=== PATIENT | female | born 1990 | race Caucasian/White ===

== ENCOUNTER 2019-01-06 01:21 | Emergency (ER) | payer BC ==
[2019-01-06 01:29] VITALS: BP 137/86; PULSE 77; TEMP 98.3; BMI 22.8
[2019-01-06] MEDS ORDERED: CYCLOBENZAPRINE HCL 10 MG TABLET (FP) PO ONE (02:07)
--- NOTE | 2019-01-06 02:10 | PDOC ---
History of Present Illness - General Chief Complaint: Muscle Cramping Stated Complaint: MUSCLE SPASMS Time Seen by Provider: 01/06/19 01:45 History Source: Patient Exam Limitations: No Limitations - History of Present Illness Initial Comments: 01/06/19 02:08 This is a 28-year-old female who is been having intermittent muscle spasms for 7 months. Patient is seen multiple specialist for the muscle spasms and has an appointment with a neurologist next week. Patient comes in tonight because she has a muscle spasm/cramp in her right leg. Patient said symptoms have resolved at this point. Patient is without any other complaints. Allergies: as per nursing notes Past Medical History: none Social history: Lives with family. No smoking. No alcohol. No illicit drugs. Surgical history: None General: No fevers or chills, no weakness, no weight loss HEENT: No change in vision. No sore throat,. No ear pain CardioVascular: no chest discomfort. No shortness of breath Respiratory:No cough, or wheezing. Gastrointestinal: no nausea, vomiting, diarrhea or constipation, No rectal bleeding Genitourinary: No dysuria, hematuria, or frequency Musculoskeletal: No joint or muscle pain or swelling Neurologic: No headache, vertigo, dizziness or loss of consciousness, muscle spasm as per HPI Psychiatric: nor depression Skin: No rashes or easy bruising Endocrine: no increased thirst or abnormal weight change Allergic: no skin or latex allergy All other systems reviewed and normal GENERAL: The patient is awake, alert, and fully oriented, in no acute distress. HEAD: Normal with no signs of trauma. EYES: Pupils equal, round and reactive to light, extraocular movements intact, sclera anicteric, conjunctiva clear. EXTREMITIES:atraumatic, Normal range of motion, no edema. NEUROLOGICAL: Normal speech, normal gait. PSYCH: Normal mood, normal affect. SKIN: Warm, Dry, normal turgor, no rashes or lesions noted. Assessment and plan : This is a [id number]-old female with intermittent muscle spasms of different muscle groups Throughout her body. Patient is going to see a neurologist next week has seen several other specialists without being found. Patient given a prescription for Flexeril and one Flexeril here. Patient told to take the Flexeril as needed for the muscle spasms. Past History - Past Medical History Allergies/Adverse Reactions: Allergies Allergy/AdvReac Type Severity Reaction Status Date / Time No Known Drug Allergies Allergy Verified 01/06/19 01:23 Home Medications: Ambulatory Orders Ascorbate Calcium [Vitamin C] 500 mg PO DAILY 01/06/19 Cetirizine HCl [Zyrtec -] 10 mg PO DAILY 01/06/19 Magnesium 200 mg PO DAILY 01/06/19 Methylcellulose [Fiber] 500 mg PO DAILY 01/06/19 COPD: No Other medical history: MUSCLE SPASMS SINCE JUNE 2018 - Surgical History Appendectomy: Yes - Psycho Social/Smoking Cessation Hx Smoking History: Never smoked *Physical Exam - Vital Signs Last Vital Signs Temp Pulse Resp BP Pulse Ox 98.3 F 77 16 137/86 100 01/06/19 01:25 01/06/19 01:25 01/06/19 01:25 01/06/19 01:25 01/06/19 01:25 Discharge - Discharge Information Problems reviewed: Yes Clinical Impression/Diagnosis: Muscle spasm Condition: Stable Disposition: HOME - Admission No - Follow up/Referral - Patient Discharge Instructions Additional Instructions: Take the Flexeril 1 tablet as often as 3 times a day if needed however it will make you drowsy so you cannot drive or work if you are taking it. Therefore you may need to limit it to the nighttime hours. Make sure you keep your appointment with the neurologist. Return to the emergency department immediately with ANY new, persistent or worsening symptoms. Continue any medications as previously prescribed by your physician. You should follow up with your primary doctor as soon as possible regarding today's emergency department visit. . Please make sure your doctor reviews the results of your emergency evaluation. Thank you for coming to the Emergency Department today for your care. It was a pleasure to see you today. Please note that your evaluation is INCOMPLETE until you follow-up with your doctor. - Post Discharge Activity
[2019-01-06] MEDS ORDERED: CYCLOBENZAPRINE HCL 10 MG TABLET (FP) ONE (02:12)
== END 2019-01-06 02:18 | disposition home or self-care (01) ==
LOC: FER 01:21
DX: R25.2 Cramp and spasm (principal)
CPT/HCPCS: 99281-25